=== PATIENT | male | born 1995 | race Caucasian/White ===

== ENCOUNTER 2021-04-17 20:59 | Emergency (ER) | payer BC ==
[2021-04-17] MEDS ORDERED: Oseltamivir 75 MG Cap ONE (23:00)
== END 2021-04-17 23:06 | disposition home or self-care (01) ==
LOC: LB.ED 20:59
DX: J11.1 Influenza due to unidentified influenza virus with other respiratory manifestations (principal); Z88.0 Allergy status to penicillin; Z88.1 Allergy status to other antibiotic agents; Z88.8 Allergy status to other drugs, medicaments and biological substances; Z20.822 Contact with and (suspected) exposure to COVID-19
CPT/HCPCS: 36415; 71046; 80048; 83605; 85025; 87804; 87804-59; 99283-25; A9270-GY; U0002

== ENCOUNTER 2021-12-26 21:40 | Emergency (ER) | payer BC ==
[2021-12-26] MEDS ORDERED: Sodium Chloride 0.9% 10 ML Syringe FLUSH PRN (22:10)
== END 2021-12-26 23:05 | disposition home or self-care (01) ==
LOC: LB.ED 21:40
DX: R04.2 Hemoptysis (principal); F17.290 Nicotine dependence, other tobacco product, uncomplicated; Z88.0 Allergy status to penicillin; Z88.1 Allergy status to other antibiotic agents; Z88.8 Allergy status to other drugs, medicaments and biological substances; Z79.899 Other long term (current) drug therapy; Z20.822 Contact with and (suspected) exposure to COVID-19
CPT/HCPCS: 36415; 71046; 80053; 85025; 85379; 99282; 99283; U0002

== ENCOUNTER 2022-10-20 07:45 | Emergency (ER) | payer BC, OTHER | END 2022-10-20 08:19 | disposition home or self-care (01) | LOC: LB.ED 07:45 | DX: S60.222A Contusion of left hand, initial encounter (principal); K21.9 Gastro-esophageal reflux disease without esophagitis; Z88.0 Allergy status to penicillin; Z88.1 Allergy status to other antibiotic agents; Z88.8 Allergy status to other drugs, medicaments and biological substances; Z79.899 Other long term (current) drug therapy; Z86.16 Personal history of COVID-19; W23.0XXA Caught, crushed, jammed, or pinched between moving objects, initial encounter | CPT/HCPCS: 73130-LT; 99283 ==

== ENCOUNTER 2023-03-23 17:15 | Emergency (ER) | payer OTHER ==
[2023-03-23] MEDS ORDERED: Benzonatate 100 MG Cap ONE (19:00)
== END 2023-03-23 19:06 | disposition home or self-care (01) ==
LOC: LB.ED 17:15
DX: B34.8 Other viral infections of unspecified site (principal); F17.210 Nicotine dependence, cigarettes, uncomplicated; Z86.16 Personal history of COVID-19; Z88.0 Allergy status to penicillin; Z88.3 Allergy status to other anti-infective agents; Z88.8 Allergy status to other drugs, medicaments and biological substances
CPT/HCPCS: 99284; A9270-GY

== ENCOUNTER 2023-04-26 23:20 | Emergency (ER) | payer OTHER ==
[2023-04-26] MEDS: SUMAtriptan 6 MG/0.5 ML SDV SUBCUT ONE (23:40)
[2023-04-26] MEDS: Ondansetron 4 MG Tab.DIS PO ONE (23:52)
[2023-04-26] MEDS: Ketorolac 60 MG/2 ML SDV IM ONE (23:52)
== END 2023-04-27 01:00 | disposition home or self-care (01) ==
LOC: LB.ED 23:29
DX: G44.209 Tension-type headache, unspecified, not intractable (principal); J45.909 Unspecified asthma, uncomplicated; Z88.0 Allergy status to penicillin; Z88.1 Allergy status to other antibiotic agents; Z88.8 Allergy status to other drugs, medicaments and biological substances; Z86.16 Personal history of COVID-19
CPT/HCPCS: 96372; 99283; J1885; J3030; Q0162

== ENCOUNTER 2023-08-09 15:53 | Emergency (ER) | payer SELFPAY ==
[2023-08-09] MEDS: Bacitracin Oint 1 GM U/D Packet TOP ONE (17:18)
== END 2023-08-09 17:20 | disposition home or self-care (01) ==
LOC: LB.ED 15:53
DX: S61.251A Open bite of left index finger without damage to nail, initial encounter (principal); F17.210 Nicotine dependence, cigarettes, uncomplicated; Z88.0 Allergy status to penicillin; Z88.8 Allergy status to other drugs, medicaments and biological substances; Z88.1 Allergy status to other antibiotic agents; Z86.16 Personal history of COVID-19; W54.0XXA Bitten by dog, initial encounter
CPT/HCPCS: 99283

== ENCOUNTER 2024-06-16 15:06 | Emergency (ER) | payer BC ==
[2024-06-16] MEDS: Sodium Chloride 0.9% 1,000 ML IV ONE (15:33)
[2024-06-16] MEDS: Benzonatate 100 MG Cap PO ONE (15:38)
[2024-06-16 15:58] LABS: BASOPHILS ABSOLUTE AUTO 0.02 K/uL (0.02-0.10); BASOPHILS PERCENT AUTO 0.2 % (0.0-0.5); EOSINOPHILS ABSOLUTE AUTO 0.08 K/uL (0.04-0.40); EOSINOPHILS PERCENT AUTO 0.9 % (1.0-5.0); HEMATOCRIT 45.6 % (40.0-54.0); HEMOGLOBIN 15.7 g/dL (13.0-18.0); LYMPHOCYTES ABSOLUTE AUTO 0.98 K/uL (1.50-4.00); LYMPHOCYTES PERCENT AUTO 11.2 % (20.0-40.0); MEAN CORPUSCULAR HEMOGLOBIN 30.3 pg (27.0-32.0); MEAN CORPUSCULAR HGB CONC 34.4 g/dL (31.0-35.0); MEAN CORPUSCULAR VOLUME 88 fL (76-96); MONOCYTES ABSOLUTE AUTO 0.75 K/uL (0.20-0.80); MONOCYTES PERCENT AUTO 8.5 % (3.0-10.0); NEUTROPHILS ABSOLUTE AUTO 6.95 K/uL (2.00-7.50); NEUTROPHILS PERCENT AUTO 79.2 % (45.0-70.0); PLATELET COUNT,PLT 273 K/uL (150-400); RED BLOOD CELL COUNT 5.18 M/uL (4.50-6.50); RED CELL DISTRIBUTION WIDTH 13.7 % (11.0-16.0); WHITE BLOOD CELL COUNT,WBC 8.8 K/uL (4.0-11.0)
[2024-06-16 16:24] LABS: A/G RATIO 1.1 (0.8-2.0); ALBUMIN 4.2 g/dL (3.4-5.0); ANION GAP 10.5 mmol/L (5.0-15.0); BILIRUBIN TOTAL 1.2 mg/dL (0.0-1.0); BUN/CREATININE RATIO 9.4 (6-25); CALCIUM 9.2 mg/dL (8.5-10.1); CARBON DIOXIDE,CO2 28.4 mmol/L (21.0-32.0); CREATININE 0.85 mg/dL (0.70-1.30); EST CRCL DRUG DOSING (CG) 134.79 mL/min; POTASSIUM,K 3.9 mmol/L (3.5-5.1)
[2024-06-16 16:29] LABS: INFLUENZA A NAA NEGATIVE (NEGATIVE); INFLUENZA B NAA NEGATIVE (NEGATIVE)
[2024-06-16 16:30] LABS: CORONAVIRUS COVID-19 NAA NEGATIVE (NEGATIVE)
== END 2024-06-16 16:41 | disposition home or self-care (01) ==
LOC: LB.ED 15:06
DX: K52.9 Noninfective gastroenteritis and colitis, unspecified (principal); J45.909 Unspecified asthma, uncomplicated; F17.200 Nicotine dependence, unspecified, uncomplicated; Z86.16 Personal history of COVID-19; Z88.0 Allergy status to penicillin; Z88.1 Allergy status to other antibiotic agents; Z88.8 Allergy status to other drugs, medicaments and biological substances; Z79.899 Other long term (current) drug therapy
CPT/HCPCS: 0240U; 36415; 80053; 85025; 87651; 96360; 99283; 99284-25; A9270-GY; J7030

== ENCOUNTER 2024-08-22 14:21 | Emergency (ER) | payer OTHER, BC | END 2024-08-22 15:14 | disposition home or self-care (01) | LOC: LB.ED 14:21 | DX: S49.92XA Unspecified injury of left shoulder and upper arm, initial encounter (principal); J45.909 Unspecified asthma, uncomplicated; V40.5XXA Car driver injured in collision with pedestrian or animal in traffic accident, initial encounter | CPT/HCPCS: 99283 ==

== ENCOUNTER 2025-03-25 16:27 | Emergency (ER) | payer BC ==
[2025-03-25 17:48] LABS: INFLUENZA A NAA POSITIVE (NEGATIVE); INFLUENZA B NAA NEGATIVE (NEGATIVE); RESPIRATORY SYNCYTIAL VIR NAA NEGATIVE (NEGATIVE)
[2025-03-25 17:56] LABS: CORONAVIRUS COVID-19 NAA NEGATIVE (NEGATIVE)
== END 2025-03-25 18:10 | disposition home or self-care (01) ==
LOC: LB.ED 16:27
DX: J10.1 Influenza due to other identified influenza virus with other respiratory manifestations (principal); J45.909 Unspecified asthma, uncomplicated; Z88.0 Allergy status to penicillin; Z88.8 Allergy status to other drugs, medicaments and biological substances; Z88.1 Allergy status to other antibiotic agents
CPT/HCPCS: 87637; 99283; 99284